=== PATIENT | female | born 1955 | race Caucasian/White ===

== ENCOUNTER 2021-06-17 11:00 | Outpatient (CLI) | payer OTHER | END 2021-06-17 11:01 | disposition home or self-care (01) | LOC: CTENTCT 11:00 | PROVIDERS: ATTEND Specialist | DX: J34.89 Other specified disorders of nose and nasal sinuses (principal) | CPT/HCPCS: 70486 ==

== ENCOUNTER 2021-07-22 15:27 | Outpatient (CLI) | payer OTHER | END 2021-07-22 15:28 | disposition home or self-care (01) | LOC: SCSMRI 15:27 | PROVIDERS: ATTEND Orthopaedic Surgery | DX: S46.011A Strain of muscle(s) and tendon(s) of the rotator cuff of right shoulder, initial encounter (principal); S43.431A Superior glenoid labrum lesion of right shoulder, initial encounter; S46.211A Strain of muscle, fascia and tendon of other parts of biceps, right arm, initial encounter ==